=== PATIENT | male | born 1955 | race Caucasian/White ===

== ENCOUNTER 2025-01-21 10:23 | Day surgery (SDC) | payer OTHER, SELFPAY ==
[2025-01-12 10:29] VITALS: BMI 34.3
--- NOTE | 2025-01-12 10:36 | HPS.HSE ---
Addendum entered and electronically signed by Ambika Lemus PA-C 01/13/25 08:43:
Echocardiogram result is from 01/14/2016 not 2024 as previously stated.
Original Note:
Family Physician
-
Family Physician: Alen Nunes
Chief Complaint
-
Persistent atrial fibrillation.
History of Present Illness
The patient is a 69 year old male presenting today for persistent atrial fibrillation. The patient reports intermittent dyspnea and palpitations associated with his arrhythmia. He previously underwent pulmonary vein isolation in 2015 and a
cardioversion in August 2024 secondary to this diagnosis. He is on current pharmacological therapy with Diltiazem ER. He reports he has been compliant with Xarelto for oral anticoagulation. He notes that his current symptoms associated with his
atrial fibrillation greatly interfere with his activities of daily living and are overall impacting his quality of life. He is interested in pursuing pulmonary vein isolation for further arrhythmia management. He denies any current complaints today
such as chest pain, shortness of breath at rest, nausea, vomiting, diarrhea, lightheadedness, dizziness, cough, sore throat, or fever.
Medical History
Past Medical History
Past Medical History: Reports Other
Additional Past Medical History:
1. Persistent atrial fibrillation, status post pulmonary vein isolation, 2015, and cardioversion 08/2024; pharmacological therapy with Diltiazem ER, oral anticoagulation with Xarelto.
2. Hypertension.
3. Tachycardia-induced cardiomyopathy, improved ejection fraction.
4. Mild mitral regurgitation.
5. GERD.
6. Colon polyps.
7. Sciatica.
8. Osteoarthritis, status post left total hip arthroplasty 2010.
9. Lyme disease.
10. Glaucoma, status post surgical correction.
11. ADHD.
12. Insomnia.
13. Tinnitus.
14. Hearing impairment bilaterally.
15. Obesity, BMI 34.3.
16. Remote tobacco abuse.
Past Surgical History: Reports Other
Additional Past Surgical History:
1. Pulmonary vein isolation.
2. Cardioversion.
3. Left total hip arthroplasty.
4. Glaucoma surgery and cataract extraction of left eye.
5. Multiple colonoscopies.
Social History
Tobacco: Former Smoker (He is a former up to 2 pack per day cigarette smoker who quit tobacco altogether in 1990. )
Alcohol: Occasional
Personal:
Living: Other (He lives with his in a 2 story home. )
Family History
Family History: Cancer (Colon )
Allergies / Home Medications
Allergy/Medication List:
Home medications:
1. Aspirin 81 mg p.o. daily.
2. Diltiazem ER 240 mg p.o. daily.
3. Docosahexaenoic acid-epa 2 capsules p.o. daily.
4. Famotidine 20 mg p.o. daily as needed.
5. Lisinopril 20 mg p.o. daily.
6. Melatonin 10 mg p.o. at bedtime as needed.
7. Centrum multivitamin 1 tablet p.o. daily.
8. Timolol-dorzolamide 1 drop ophthalmic twice a day.
9. Xarelto 20 mg p.o. every evening.
Allergies: Iodine/IV contrast.
Review of Systems
-
A 12 point ROS was completed and negative except as noted: Yes
Physical Exam
Vital Signs
Blood pressure 153/95. Heart rate 61. Respirations 18. Pulse ox 97% on room air.
Height 5 feet, 10 inches. Weight 108.3 kg. BMI 34.3.
Physical Exam
General: Well Developed, Well Nourished and No Apparent Distress
HEENT: NormoCephalic, Moist mucous membranes, Atraumatic and Hearing Impaired
Respiratory: Clear
Cardiac: Irregular Rhythm
GI: Soft, Non Tender, Non Distended and Other (Obese. )
Musculoskeletal: No Edema and Normal Gait & Station
Skin: Warm and Dry
Neuro: AO x 3 and Nonfocal/grossly intact
Laboratory Results
-
DIAGNOSTIC STUDIES as of 01/12/2025: White blood cell count 8.2. Hemoglobin 14.6. Platelet count 273,000. PT 15.5. INR 1.2. Sodium 139. Potassium 4.6. BUN 13. Creatinine 0.9. Glucose 112. Calcium 9.5. Magnesium 2.0. AST 18. ALT 21. Albumin 4.1. Type
and screen A positive.
EKG 01/12/2025: Atrial fibrillation.
Echocardiogram 01/13/2025: Normal left ventricular chamber size. Mildly reduced left ventricular systolic function. Mild concentric left ventricular hypertrophy. Left ventricular ejection fraction is 40-45%. Normal right ventricular size and
function. Mildly dilated left atrium. Mild mitral regurgitation. No thrombus detected in the left atrial appendage.
Impression/Plan
-
IMPRESSION/PLAN:
1. Persistent atrial fibrillation: The patient is in need of pulmonary vein isolation with Dr. Vamsi Riggs on 01/21/2025. The benefits and risks of the procedure have been explained to the patient. The patient understands these risks and wishes to
proceed. He will not be required to undergo a pre-procedural chest CT or transesophageal echocardiogram as he has been compliant with his home oral anticoagulation. He is aware to continue his Xarelto up until the day prior to his procedure. He will
take no medications the morning of his procedure.
[2025-01-12 11:01] LABS: % Basophils 0.6 % (0-2); % Eosinophils 1.8 % (0-6); % Immature Granulocytes 0.2 % (0-0.5); % Lymphocytes 19.1 % (20.5-51.1); % Neutrophils 71.3 % (42.2-75.2); Absolute Basophils 0.1 10^3/uL (0-0.2); Absolute Eosinophils 0.2 10^3/uL (0-0.7); Absolute Lymphocytes 1.6 10^3/uL (1.2-3.4); Absolute Monocytes 0.6 10^3/uL (0.1-0.6); Absolute Neutrophils 5.8 10^3/uL (1.4-6.5); Hemoglobin 14.6 g/dL (13.0-18.0); Mean Corp Hgb Conc. 33.2 g/dL (33.0-37.0); Mean Corpuscular Hgb 30.5 pg (27.0-31.0); Mean Corpuscular Volume 91.9 fL (80.0-94.0); Mean Platelet Volume 9.4 fL (7.4-10.4); Nucleated Red Blood Cells % 0 % (-); Platelet Count 273 10^3/uL (130-400); Red Blood Cell Count 4.79 10^6/uL (4.70-6.10); Red Cell Dist. Width 13.8 % (11.5-14.5); White Blood Cell Count 8.2 10^3/uL (4.8-10.8)
[2025-01-12 11:10] LABS: PT 15.5 Sec (11.4-14.6)
[2025-01-12 11:38] LABS: ALT (SGPT) 21 U/L (0-50); AST (SGOT) 18 U/L (17-59); Albumin 4.1 g/dl (3.5-5.0); Alkaline Phosphatase 41 U/L (38-126); Blood Urea Nitrogen 13 mg/dl (9-20); Calcium 9.5 mg/dl (8.4-10.2); Carbon Dioxide 26 mmol/L (22-30); Chloride 106 mmol/L (98-107); Estimated Creatinine Clearance 94 ml/min; Glucose 112 mg/dl (70-99); Potassium 4.6 mmol/L (3.5-5.1); Sodium 139 mmol/L (135-145); Total Bilirubin 0.7 mg/dl (0.2-1.3); Total Protein 6.8 g/dl (6.3-8.2); eGFR > 60.00
[2025-01-21] VITALS (9 sets, daily range): BP systolic 107–147; BP diastolic 79–99
--- NOTE | 2025-01-21 14:36 | ITS.CL.ABL ---
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
Ablation
Procedure Report:
ELECTROPHYSIOLOGY ABLATION STUDY
DATE:: January 21, 2025 REFERRING: Dr. Eriberto Heredia
INDICATION: Persistent supraventricular tachycardia in the form of atrial fibrillation. Prior pulmonary vein isolation in 2016 with a 28 mm cryoballoon
HISTORY: See H and P. As above
ANTIARRHYTHMIC DRUG: Diltiazem
PRE-PROCEDURE GENI: No intracardiac thrombus
PRESENTING RHYTHM: A-fib
'TIME-OUT': called and confirmed.
SEDATION/ANESTHESIA: provided via the anesthesia department using general anesthesia (LMA).
INTRAVENOUS/ARTERIAL ACCESS:
Right femoral venous - 8Fr
Left femoral venous - 8 Fr, 6 Fr
Vascade closure to right and left femoral veins plus lidocaine with epi given to the access sites at the end of the procedure.
Ultrasound guidance for bilateral femoral vein access was utilized by me to obtain access with demonstration of normal anatomy
CHADS-VASC Score:
HAS-Bled Score
PROCEDURE:
1. A decapolar CS catheter was placed within the CS for mapping and pacing. This was also used as the reference catheter for the 3-D map.
2. The intracardiac ultrasound catheter was positioned in the RA to identify the FO for targeting of transseptal puncture, assist in identification of the pulmonary vein ostia, monitoring pre and post ablation pulmonary vein flow velocities,
monitoring for 'bubble' formation during RF application as a sign of thermal injury, and to monitor for pericardial effusion during mapping and ablation procedure. Left atrial size, LV ejection fraction, and pulmonary vein flows were monitored
pre and post ablation procedure. The other valves were inspected and found to be free of significant regurgitation or stenosis.
3. Half of the calculated heparin bolus was administered prior to the first transeptal puncture. Transseptal puncture was performed to diagnose RA and LA pressure so that safety of LA mapping and ablation could be further assessed, and to access
the left atrium and pulmonary veins for mapping and ablation. This entailed advancing an 16.8 Persian sheath, RF wire with dilator into the superior vena cava and withdrawing both (monitoring intracardiac ultrasound, fluoroscopy and tip pressure)
with the tip oriented toward the atrial septum. The fossa ovalis was engaged (indicated by sudden displacement of the sheath tip as well as tenting of the fossa seen on intracardiac ultrasound). Left atrial access required a pass with the
Brockenbrough needle extended. Left atrial catheter position was confirmed by pressure monitoring (RA mean pressure 8 mm Hg and LA mean presure 14 mm Hg), LA saturation (99%), as well as fluoroscopy. The sheath was advanced over the dilator and
positioned in the left atrium. The remainder of the calculated heparin bolus was administered and heparin was
infused to maintain ACT at 300 -350 seconds throughout the case.
4. RA pacing was performed via the proximal decapolar poles and LA pacing was performed via the distal decapolr poles.
5. A quadrapolar catheter was first positioned at the His position for His Bundle recording which was tagged via the 3-D Navex sytem, and then passed to the RVA for RV pacing and recording.
6. The multipolar catheter and the Penta spline PFA catheter were placed in each of the LIPV, LSPV, RSPV and the RIPV.
7. Next, a 3-D map was created using Navex. A 3-D reconstructed CT image was compared to the 3-D Navex map to assist in anatomic interpretation, mapping and ablation. The CT image and the NavX image were fused.
8. The left paco at the posterior wall was reconnected. The remainder of the pulmonary veins were chronically isolated. There was distinct fractionated signal throughout the entirety of the posterior wall with high frequency gradient to the
right atrium.
Total 47 lesions were given to the left paco and all of and basket pose to the superior and inferior pulmonary veins. Flower post to the interatrial septum roof posterior wall and floor of the left atrium. Patient was then converted to sinus
rhythm and entrance and exit block was confirmed in all 4 pulmonary veins plus the roof posterior wall and floor of the left atrium.
9. Normal sinus node and AV node function noted.
TOTAL FLOURO TIME: 14.6 minutes 143 mGy
TOTAL RF DURATION: 0 minutes
REVERSAL OF HEPARIN: 35 mg of protamine, slow IV administration
COMPLICATIONS:
None
Intracardiac US shows no pericardial effusion post ablation.
SUMMARY:
Complex left atrial mapping and ablation.
Reisolation of the left pulmonary vein paco and the posterior including the roof and floor of the left atrium.
RECOMMENDATIONS:
1. Ambulate in 3 hours
2. Resume anticoagulation
3. Diltiazem continue
4. Consider same-day discharge
Copy to: Dr. Eriberto Heredia
[2025-01-21] MEDS: TYLENOL 650 MG PO (15:10)
[2025-01-21] MEDS: ANESTHETIC LOZENGE 1 LOZENGE PO (15:20)
--- NOTE | 2025-01-21 16:13 | W.PN.UPDATE ---
Update Note
Progress Note Update
69 yo WM s/p redo PVI (same day). He denies cp, sob, maximo clears, mild sore throat, EKG SR, b/l groins VASCADE soft, scant drainage on R groin. He will resume Xarelto tonight after 9pm and continue diltiazem. Activity restrictions reviewed. He will
f/u Dr. Heredia in 2 mo. He is for d/c home after 6p if groins stable.
SUMMARY:
Complex left atrial mapping and ablation.
Reisolation of the left pulmonary vein paco and the posterior including the roof and floor of the left atrium.
== END 2025-01-21 18:04 | disposition home or self-care (01) ==
LOC: CATH 10:23
PROVIDERS: ATTENDING PHYSICIAN Internal Medicine Cardiovascular Disease; FAMILY PHYSICIAN Family Medicine; OTHER PHYSICIAN Internal Medicine Cardiovascular Disease
DX: I48.19 Other persistent atrial fibrillation (principal); I10 Essential (primary) hypertension; I34.0 Nonrheumatic mitral (valve) insufficiency; R00.0 Tachycardia, unspecified; K21.9 Gastro-esophageal reflux disease without esophagitis; Z86.0100 Personal history of colon polyps, unspecified; M54.30 Sciatica, unspecified side; M19.90 Unspecified osteoarthritis, unspecified site; Z86.19 Personal history of other infectious and parasitic diseases; F90.9 Attention-deficit hyperactivity disorder, unspecified type; H40.9 Unspecified glaucoma; H93.19 Tinnitus, unspecified ear; E66.9 Obesity, unspecified; Z68.34 Body mass index [BMI] 34.0-34.9, adult; H91.93 Unspecified hearing loss, bilateral; Z87.891 Personal history of nicotine dependence; Z79.01 Long term (current) use of anticoagulants; Z79.82 Long term (current) use of aspirin; Z79.899 Other long term (current) drug therapy; Z80.0 Family history of malignant neoplasm of digestive organs
CPT/HCPCS: C1760; C1894; C1730; C1766; C1892; C1759; 36415; 80053; 83735; 85025; 85347; 85610; 86850; 86900; 86901; 93005; 93656; 93657; C1732